=== PATIENT | female | born 1960 | race Caucasian/White ===

== ENCOUNTER → 2024-09-30 | Outpatient (CLI) | payer MEDICARE ==
[~2024-09-30] MED LIST: AMLO25TA PO; ASPI81TA26 PO; CYCL-707 PO; DOXE10CA PO; FEXO-193 PO; GABA-1171 PO; HYDR-3713 PO; HYDR-643 PO; LEVO50TA5 PO; LISI10TA22 PO; METF500T13 PO; MIRA0.5T PO; MONT10TA97 PO; OMEP1CAP73 PO; PARO10TA3 PO; PERC5TAB12 PO; SIMV20TA22 PO; VENTAER INH; VITA-243 PO; XARE10TA PO; XOLA150S SC
== END ==
LOC: M SLEEP 20:00
PROVIDERS: ATTEND Internal Medicine Pulmonary Disease
DX: G47.33 Obstructive sleep apnea (adult) (pediatric) (principal)